=== PATIENT | male | born 1980 | race Two or more races ===

== ENCOUNTER 2019-08-30 07:17 | Day surgery (SDC) | payer SELFPAY ==
[2019-08-30 08:58] VITALS: BP 105/68
== END 2019-08-30 09:21 | disposition home or self-care (01) | DRG 392 ==
LOC: ORM 07:17
PROVIDERS: ATTEND Surgery
PROC: 0DB48ZX Excision of Esophagogastric Junction, Via Natural or Artificial Opening Endoscopic, Diagnostic (ICD-10-PCS; principal; 2019-08-30)
DX: K21.0 Gastro-esophageal reflux disease with esophagitis (principal); K29.70 Gastritis, unspecified, without bleeding; K44.9 Diaphragmatic hernia without obstruction or gangrene; F17.220 Nicotine dependence, chewing tobacco, uncomplicated; Z11.59 Encounter for screening for other viral diseases

== ENCOUNTER 2023-11-03 08:21 | Day surgery (SDC) | payer SELFPAY ==
[~2023-11-03] VITALS: Ht 175.3 cm; Wt 81.6 kg
[~2023-11-03 08:21] MED LIST: OMEPRAZOLE DR40 MG PO
[2023-11-03] MEDS ORDERED: LACTATED RINGER'S 1,000 ML IV ONE (08:24)
[2023-11-03] MEDS ORDERED: FAMOTIDINE 10MG/ML 2ML SDV IV ONE (08:24)
[2023-11-03 10:04] VITALS: BP 119/87
[2023-11-03] MEDS ORDERED: LIDOCAINE HCL 2% 2ML SDV IV ONE (13:01)
[2023-11-03] MEDS ORDERED: PROPOFOL 200 MG/20 ML VIAL IV ONE (13:01)
== END 2023-11-03 10:28 | disposition home or self-care (01) | DRG 379 ==
LOC: ENDO 08:21 → ORM 09:00 → ENDO 09:00
PROVIDERS: ATTEND Surgery
PROC: 0DJD8ZZ Inspection of Lower Intestinal Tract, Via Natural or Artificial Opening Endoscopic (ICD-10-PCS; principal; 2023-11-03)
DX: K55.21 Angiodysplasia of colon with hemorrhage (principal); K64.4 Residual hemorrhoidal skin tags; K64.8 Other hemorrhoids